=== PATIENT | female | born 1935 | race Caucasian/White ===

== ENCOUNTER 2017-05-31 11:20 | Emergency (ER) | payer OTHER ==
[~2017-05-31] VITALS: Ht 160 cm; Wt 81.6 kg
[~2017-05-31 11:20] MED LIST: COZAAR25 MG; COZAAR50 MG; GLUCOPHAGE XR500 MG; JENTADUETO 2.51 EAC2
== END 2017-05-31 15:35 | disposition home or self-care (01) ==
LOC: ER 11:20
DX: J22 Unspecified acute lower respiratory infection (principal)